=== PATIENT | female | born 1995 | race Caucasian/White ===

== ENCOUNTER 2019-08-19 14:48 | Emergency (ER) | payer BC, OTHER, SELFPAY ==
[2019-08-19 14:51] VITALS: BP 137/78; PULSE 78; RESP 14; TEMP 37.3; O2SAT 97; BMI 24.4
--- NOTE | 2019-08-19 15:28 | CT_ITS ---
STUDY: CT CERVICAL SPINE WITHOUT CONTRAST REASON FOR EXAM: Female, 23 years old. Trauma RADIATION DOSAGE (If Supplied By Facility): CTDIvol = ( 21.21 ) mGy, DLP = ( 449.51 ) mGycm TECHNIQUE: High resolution transaxial imaging was performed without contrast material. Sagittal and coronal images were reconstructed. Individualized dose optimization techniques were used for this CT. COMPARISON: None FINDINGS: Straightening of normal cervical lordotic curvature. Craniocervical junction appears unremarkable. The facets appear aligned. Spinous processes are intact. Mild anterior wedging of the C5 and C6 vertebral bodies which appear chronic. No prevertebral soft tissue swelling. The dens appears intact. Occipital condyles are within normal limits. The C1 arch is within normal limits. No prevertebral soft tissue swelling. IMPRESSION: No evidence for acute cervical spine fractures. Electronically Signed: Arnie Escalante, at 17:19 EST Tel , Service support , CT/Spine Cervical without Contras
--- NOTE | 2019-08-19 15:28 | CT_ITS ---
STUDY: CT LUMBAR SPINE WITHOUT CONTRAST REASON FOR EXAM: Female, 23 years old. Patient fell on a basketball court neck pain RADIATION DOSAGE (If Supplied By Facility): CTDIvol = ( 32.22 ) mGy, DLP = ( 944.27 ) mGycm TECHNIQUE: The patient was scanned in a multi detector CT scanner. High resolution transaxial imaging was performed. Images were obtained from T12 to S1. Sagittal and coronal images were reconstructed. Individualized dose optimization techniques were used for this CT. COMPARISON: None FINDINGS: Vertebral body heights are maintained. Mild disc space narrowing at L5-S1 level with facet hypertrophy resulting in neural foraminal narrowing at L5-S1 level. There is a disc herniation at L5-S1 level seen with resultant neural foraminal narrowing and likely central canal stenosis. Approximation of the bilateral S1 nerve roots, left greater than right seen. Mild sclerosis of the sacroiliac joints. The spinous processes are intact. The transverse processes appear intact. No paraspinal soft tissue mass or fluid collections. IMPRESSION: No evidence for acute lumbar spine fractures. No evidence for spondylolysis. L5-S1 level disc herniation with approximation of the bilateral S1 nerve roots, (right breast assessed with MRI examination of the lumbar spine Electronically Signed: Arnie Escalante, at 17:22 EST Tel , Service support , CT/Spine Lumbar without Contrast
--- NOTE | 2019-08-19 15:28 | CT_ITS ---
STUDY: CT BRAIN WITHOUT CONTRAST REASON FOR EXAM: Female, 23 years old. Patient fell on a basketball court. Trauma RADIATION DOSAGE (If Supplied By Facility): CTDIvol = ( 44.99 ) mGy, DLP = ( 779.24 ) mGycm TECHNIQUE: Transaxial CT imaging of the brain was performed without administration of intravenous contrast material. Individualized dose optimization techniques were used for this CT. COMPARISON: No relevant priors. FINDINGS: Normal soft tissue structures. Normal calvarium. Normal size ventricles and extra-axial spaces for the patient's age. Normal white matter tracts of the cerebral hemispheres. Normal basal ganglia and thalami. Normal brainstem. Normal cerebellum. There is no intracranial hemorrhage. There are no findings of an acute ischemic infarction. Minimal mucosal thickening of the right maxillary sinus. Partial opacification of the ethmoid air cells. CT/Brain/Head without Contrast IMPRESSION: No acute intracranial hemorrhage, mass effect or acute large territory infarcts. Electronically Signed: Arnie Escalante, at 17:14 EST Tel , Service support ,
[2019-08-19] MEDS: Morphine 4 MG/ML Syringe IV ×2 (15:47→16:50)
[2019-08-19] MEDS: Ondansetron 4 MG/2 ML Vial IV ×2 (15:47→16:49)
[2019-08-19] MEDS: 0.9% Normal Saline 1,000 ML 150 ML IV (15:47)
[2019-08-19 16:01] LABS: Anion Gap 5 (5-15); BUN 15 mg/dL (7-18); BUN/Creat Ratio 17.5 RATIO (10-20); Calcium,Total 9.3 mg/dL (8.5-10.1); Chloride 108 mmol/L (98-107); Creatinine, Serum 0.86 mg/dL (0.55-1.02); EST Glomerular Filtration Rate 88 mL/min (>60); Est Glom Filt Rate - Afr Amer 107 mL/min (>60); Estimated Creatinine Clearance 119.41 ml/min; Glucose 97 mg/dL (74-106); Potassium 4.3 mmol/L (3.5-5.1); Sodium Level 139 mmol/L (136-145)
[2019-08-19 16:23] LABS: Internal QC Validated? YES +Cl - CLEAR BKGD; Pregnancy, Serum, hCG Quali. NEGATIVE Negative
[2019-08-19 16:23] LABS: Absolute Lymphocyte Count 1.55 X10^3/uL (0.83-4.51); Basophil# 0.07 X10^3/uL; Basophil% 0.7 % (0-1); Eosinophil# 0.08 X10^3/uL; Eosinophils% 0.8 % (0-5); Hemoglobin 13.2 g/dL (12.0-15.0); Lymphocyte # 1.55 X10^3/ul (4.0); Lymphocyte % 16.2 % (19-41); Mean Corpuscular Hgb 29.7 pg (27.0-32.0); Mean Corpuscular Volume 89.9 fL (81-99); Mean Platelet Vol. 10.9 fl (6.2-12.0); Monocyte# 0.77 X10^3/uL; Monocyte% 8.1 % (0-10); NRBC Flagged by Analyzer 0 % (0-5); Neutrophil # 7.04 X10^3/uL (2.7-7.7); Neutrophil % 73.9 % (47-70); Platelet Count 312 K/mm3 (150-450); RBC Distribution Width CV 12.2 % (11.6-14.6); RBC Distribution Width SD 39.8 fl (35.1-43.9); Red Blood Count 4.45 M/mm3 (4.2-5.4); White Blood Count 9.5 K/mm3 (4.4-11.0)
--- NOTE | 2019-08-19 17:11 | ED.VISSUMM ---
- ER Visit Summary Date of Service: 08/19/19 Chief Complaint: [Head, neck, and back injury] History of Present Illness: The patient is a 23 F [presents to the emergency department after sustaining an injury today while playing basketball. Patient presents via EMS.] Patient was in a basketball game and apparently went up for a rebound and collided heads with another player which caused her to follow the ground and struck her head on the ground. Patient landed awkwardly. Patient was complaining of not being able to move her legs afterwards. Patient complaining of neck and head pain. Does not believe she had a loss of consciousness. Patient has no significant medical history. She has had a history of atrial septal defect repair. Primary care physician is from out of town. Patient complains of paresthesias in her legs and arms. Physical Examination: [HEENT-PERRLA, EOMI. Cranial nerves II through XII grossly intact. TMs clear. Mucous membranes moist. No adenopathy. She has diffuse C-spine tenderness on palpation and c-collar was left in place. Cardiovascular-regular rate and rhythm without murmur or ectopy Lungs-clear to auscultation, chest wall stable without crepitus or subcu emphysema Abdomen-normoactive bowel sounds, soft, nontender, no rebound or rigidity, no peritoneal signs. Back exam-patient has used tenderness over the lumbar spine. No bony step-offs noted. Deep tendon reflexes are plus 2 out of 4 bilaterally at the patella and Achilles. She has decreased L5 extension bilaterally. She has sensation to light touch bilaterally. Patient has decreased ability to move her legs but will slowly move her toes. Extremities-intact ?4, normal range of motion, normal pulses, atraumatic] Test Results: [CBC with differential obtained was normal. Chemistries normal. hCG was negative. CT scan of the head as well as C-spine and LS-spine were ordered and results pending from radiology however on my interpretation I do not see any acute evidence of trauma.] Emergency Department Course and Treatment: [And had an IV line established on arrival and was medicated with morphine and Zofran. Patient required a second dose of morphine. Patient continues to complain of severe pain and inability to move her arms and legs. It was recommended that patient be transferred to the trauma center for further evaluation as she would need further work-up including possibly MRI to rule out cord compression or contusion. Family in agreement and they are requesting to go to [facility] in [place]. Case was discussed with [facility] transfer line who accepted transfer patient Dr. Iris Bobby.] Treatment Plan: [Transfer to [facility] trauma center] Disposition: [Transfer] Impression: [Fall Close head injury Neck and back contusion-rule out cord injury] This note was generated with [facility] dictation software. It may contain incorrect words, spelling, and punctuation that were not noted in review of the chart prior to signing ED Disposition - Plan for ED Patient: Referrals: ROXANA SHEPARD [Other]
[2019-08-19 17:12] VITALS: BP 137/71; PULSE 62; RESP 14
[2019-08-19 17:37] VITALS: BP 133/69; PULSE 62; RESP 14; TEMP 37.2
--- NOTE | 2019-08-19 17:38 | ED.RN ---
PER DR. HICKS, [facility] PT FROM BACKBOARD, HOWEVER PT IS TO BE TRANSFERRED ON A BACK BOARD.
[2019-08-19] MEDS: fentaNYL 100 MCG/2 ML Ampul 50 MCG IV (18:45)
== END 2019-08-19 18:55 | disposition home or self-care (01) ==
LOC: ED 16:20
PROVIDERS: Emergency Provider Emergency Medicine
DX: S09.90XA Unspecified injury of head, initial encounter (principal); S19.9XXA Unspecified injury of neck, initial encounter; S39.92XA Unspecified injury of lower back, initial encounter; W03.XXXA Other fall on same level due to collision with another person, initial encounter; Y93.67 Activity, basketball; Y92.310 Basketball court as the place of occurrence of the external cause; Y99.8 Other external cause status
CPT/HCPCS: 70450; 72125; 72131; 80048; 84703; 85025; 96361; 96374; 96375; 96376; 99285; J7030; A4216; J2405